=== PATIENT | female | born 1940 | race Caucasian/White ===

== ENCOUNTER → 2024-03-21 16:47 | Outpatient (REF) | payer MEDICARE, SELFPAY | LOC: RAD 16:47 | PROVIDERS: ATTENDING PHYSICIAN Nurse Practitioner Family | DX: R22.42 Localized swelling, mass and lump, left lower limb (principal) | CPT/HCPCS: 93971 ==

== ENCOUNTER → 2024-08-03 16:07 | Outpatient (REF) | payer MEDICARE, SELFPAY | LOC: RAD 16:07 | PROVIDERS: ATTENDING PHYSICIAN Nurse Practitioner Family; FAMILY PHYSICIAN Family Medicine | DX: M25.562 Pain in left knee (principal) | CPT/HCPCS: 73564 ==

== ENCOUNTER → 2025-05-17 19:00 | Outpatient (REF) | payer MEDICARE, SELFPAY | LOC: MRI 3T 19:00 | PROVIDERS: ATTENDING PHYSICIAN Psychiatry & Neurology Neurology; FAMILY PHYSICIAN Family Medicine | DX: R41.3 Other amnesia (principal); G44.89 Other headache syndrome; R42 Dizziness and giddiness | CPT/HCPCS: 70553; A9575 ==